=== PATIENT | female | born 1975 | race Caucasian/White ===

== ENCOUNTER → 2016-05-25 | Outpatient (CLI) | payer OTHER ==
[~2016-05-25] MED LIST: AMLODIPINE BESY10 MG PO; COLACE 100MG C100 MG PO; HYDROCHLOROTH12.5 MG PO; HYDROCHLOROTHIA25 MG PO; IBUPROFEN600 MG PO; IRON325 M1 PO; JANUVIA50 MG PO; LORTAB 5-325 M1 EACH PO; METFORMIN HCL1000 MG PO; NORCO 7.5-3251 EACH PO; PERCOCET 7.5-31 EACH PO
== END ==
LOC: US 10:00
DX: R10.11 Right upper quadrant pain (principal)
CPT/HCPCS: 76705

== ENCOUNTER → 2016-08-03 | Outpatient (CLI) | payer OTHER | LOC: RAD 08:59 → MRI 09:00 | DX: S46.012D Strain of muscle(s) and tendon(s) of the rotator cuff of left shoulder, subsequent encounter (principal); M75.92 Shoulder lesion, unspecified, left shoulder | CPT/HCPCS: 73040; 73222; A9577; Q9962 ==

== ENCOUNTER → 2016-08-16 | Outpatient (CLI) | payer OTHER ==
[2016-08-16 11:40] LABS: HEMOGLOBIN 10.1 gm/dl (12.3-15.3); RED BLOOD COUNT 4.47 M/UL (4.00-5.10); WHITE BLOOD COUNT 7.6 K/UL (4.5-11.0)
[2016-08-16 12:01] LABS: BUN/CREATININE RATIO 22 (0-10)
== END ==
LOC: OPSV2 10:30
PROVIDERS: Obstetrics & Gynecology
DX: Z01.812 Encounter for preprocedural laboratory examination (principal); N92.0 Excessive and frequent menstruation with regular cycle
CPT/HCPCS: 36415; 80048; 81001; 85025

== ENCOUNTER 2016-08-21 09:42 | Day surgery (SDC) | payer OTHER ==
[~2016-08-21] VITALS: Ht 149.9 cm; Wt 74.8 kg
[~2016-08-21 09:42] MED LIST changes: -COLACE 100MG C100 MG PO; -HYDROCHLOROTH12.5 MG PO; -HYDROCHLOROTHIA25 MG PO; -IBUPROFEN600 MG PO; -IRON325 M1 PO; -NORCO 7.5-3251 EACH PO
[2016-08-21] MEDS ORDERED: HYDROCHLOROTHIA25 MG PO (10:22)
[2016-08-21] MEDS ORDERED: HYDROCHLOROTH12.5 MG PO (10:23)
[2016-08-22 04:13] LABS: HEMOGLOBIN 8.3 gm/dl (12.3-15.3)
[2016-08-23] MEDS ORDERED: COLACE 100MG C100 MG PO (11:23)
[2016-08-23] MEDS ORDERED: IBUPROFEN600 MG PO (11:23)
[2016-08-23] MEDS ORDERED: NORCO 7.5-3251 EACH PO (11:24)
[2016-08-23] MEDS ORDERED: IRON325 M1 PO (11:24)
== END 2016-08-23 10:30 | disposition home or self-care (01) ==
LOC: OR 09:42 → MED SURG 4 15:10 → OR 08-23 10:30
PROVIDERS: Obstetrics & Gynecology
PROC: 0UTC4ZZ Resection of Cervix, Percutaneous Endoscopic Approach (ICD-10-PCS; 2016-08-21)
PROC: 0UT74ZZ Resection of Bilateral Fallopian Tubes, Percutaneous Endoscopic Approach (ICD-10-PCS; 2016-08-21)
PROC: 0UT94ZZ Resection of Uterus, Percutaneous Endoscopic Approach (ICD-10-PCS; principal; 2016-08-21 11:15)
DX: D25.9 Leiomyoma of uterus, unspecified (principal); N80.0 Endometriosis of uterus; D64.9 Anemia, unspecified; I10 Essential (primary) hypertension; E11.9 Type 2 diabetes mellitus without complications; Z79.84 Long term (current) use of oral hypoglycemic drugs; Z79.899 Other long term (current) drug therapy; Z98.51 Tubal ligation status
CPT/HCPCS: 36415; 82962; 85014; 85018; J0360; J0690; J1100; J1885; J2250; J2270; J2310; J2405; J2710; J2795; J3010; J7030; J7120

== ENCOUNTER → 2020-04-22 | Outpatient (CLI) | payer OTHER ==
[~2020-04-22] MED LIST changes: +ASPIRIN CHEWABL81 MG PO; +COLACE 100MG C100 MG PO; +HYDROCHLOROTH12.5 MG PO; +HYDROCHLOROTHIA25 MG PO; +IBUPROFEN600 MG PO; +IRON325 M1 PO; +NORCO 7.5-3251 EACH PO; +ZOFRAN4 MG PO
[2020-04-22 08:57] LABS: HEMOGLOBIN 15.6 gm/dl (12.3-15.3); RED BLOOD COUNT 5.51 M/UL (4.00-5.10); WHITE BLOOD COUNT 7.5 K/UL (4.5-11.0)
[2020-04-22 09:19] LABS: BUN/CREATININE RATIO 20 (0-10)
[2020-04-23 11:14] LABS: CREATININE, URINE 44.6 mg/dL (Not Estab.)
== END ==
LOC: LAB 08:27
PROVIDERS: Family Medicine
DX: E78.5 Hyperlipidemia, unspecified (principal); I10 Essential (primary) hypertension; E55.9 Vitamin D deficiency, unspecified; E53.8 Deficiency of other specified B group vitamins; E11.9 Type 2 diabetes mellitus without complications
CPT/HCPCS: 36415; 80053; 80061; 82043; 82570; 82607; 85027

== ENCOUNTER → 2020-08-03 | Outpatient (CLI) | payer OTHER | LOC: EXRD 09:15 | DX: M79.672 Pain in left foot (principal); E53.8 Deficiency of other specified B group vitamins; Z12.31 Encounter for screening mammogram for malignant neoplasm of breast | CPT/HCPCS: 73610; 73630 ==

== ENCOUNTER 2020-08-30 19:06 | Emergency (ER) | payer OTHER ==
[~2020-08-30 19:06] MED LIST changes: -ASPIRIN CHEWABL81 MG PO
[2020-08-30 21:13] LABS: HEMOGLOBIN 14.1 gm/dl (12.3-15.3); RED BLOOD COUNT 4.91 M/UL (4.00-5.10); WHITE BLOOD COUNT 8.1 K/UL (4.5-11.0)
[2020-08-30 21:50] LABS: BUN/CREATININE RATIO 27 (0-10)
[2020-08-31] MEDS ORDERED: ASPIRIN CHEWABL81 MG PO (04:02)
== END 2020-08-31 04:05 | disposition home or self-care (01) ==
LOC: ER1 19:06
PROVIDERS: Physician Assistant Medical
DX: R07.9 Chest pain, unspecified (principal); I10 Essential (primary) hypertension; Z90.710 Acquired absence of both cervix and uterus; E11.9 Type 2 diabetes mellitus without complications
CPT/HCPCS: 71045; 80053; 82550; 82553; 83874; 84484; 85025; 93005; 99285

== ENCOUNTER → 2021-04-25 | Outpatient (CLI) | payer OTHER ==
[~2021-04-25] MED LIST changes: +ASPIRIN CHEWABL81 MG PO
== END ==
LOC: EXRD 10:38
DX: J20.9 Acute bronchitis, unspecified (principal); J01.90 Acute sinusitis, unspecified
CPT/HCPCS: 71046

== ENCOUNTER 2021-06-19 10:04 | Emergency (ER) | payer OTHER ==
[2021-06-19 10:44] LABS: HEMOGLOBIN 13.7 gm/dl (12.3-15.3); RED BLOOD COUNT 4.76 M/UL (4.00-5.10); WHITE BLOOD COUNT 6.2 K/UL (4.5-11.0)
[2021-06-19 11:19] LABS: BUN/CREATININE RATIO 30 (0-10)
== END 2021-06-19 17:00 | disposition home or self-care (01) ==
LOC: ER1 10:04
PROVIDERS: Emergency Medicine
DX: N83.202 Unspecified ovarian cyst, left side (principal); R30.9 Painful micturition, unspecified
CPT/HCPCS: 76830; 80053; 81001; 83690; 85025; 96374; 96375; 99284; J2270; J2405; Q9967

== ENCOUNTER → 2021-11-24 | Outpatient (CLI) | payer OTHER | LOC: LAB 09:19 | DX: R10.31 Right lower quadrant pain (principal) | CPT/HCPCS: 74018; 81001; 87086 ==